=== PATIENT | male | born 1970 | race Caucasian/White ===

== ENCOUNTER 2021-10-24 05:01 | Emergency (ER) | payer SELFPAY ==
[2021-10-24 05:07] VITALS: BP 132/87
[2021-10-24 05:15] VITALS: BP 128/77
[2021-10-24] MEDS ORDERED: CORTISPORIN OTI10 ML AD (05:16)
[2021-10-24] MEDS ORDERED: CIPROFLOXACN500 MG PO (05:16)
[2021-10-24 05:18] VITALS: BP 132/87
== END 2021-10-24 05:32 | disposition home or self-care (01) | DRG 156 ==
LOC: ED 05:01
DX: H60.91 Unspecified otitis externa, right ear (principal)

== ENCOUNTER 2021-11-19 20:52 | Emergency (ER) | payer SELFPAY ==
[~2021-11-19] VITALS: Ht 170.2 cm; Wt 95.0 kg
[~2021-11-19 20:52] MED LIST: CIPROFLOXACN500 MG PO; CORTISPORIN OTI10 ML AD
[2021-11-19 21:02] VITALS: BP 121/81
[2021-11-19 21:30] VITALS: BP 121/79
[2021-11-19 21:38] LABS: HEMATOCRIT 46.8 % (39.0-50.0); HEMOGLOBIN 15.7 g/dl (14.0-18.0); IMMATURE GRANULOCYTES 0.3 % (0.0-5.0); MEAN CELL VOLUME 91.6 fL CALC (80.0-100.0); MEAN CORPUSCULAR HGB 30.7 pG CALC (26.0-32.0); MEAN CORPUSCULAR HGB CONC 33.5 g/dL CAL (32.0-36.0); NEUT# 7.12 thou/uL (1.82-7.42); RED BLOOD COUNT 5.11 mill/uL (4.70-6.10); RED CELL DISTRI WIDTH 12.5 % (11.5-15.5)
[2021-11-19 22:00] VITALS: BP 112/82
[2021-11-19 22:00] LABS: ALBUMIN 3.9 g/dL (3.2-5.0); ALKALINE PHOSPHATASE 84 u/l (38-126); ANION GAP 12 (6-22 (CALC)); BILIRUBIN, TOTAL 0.9 mg/dL (0.0-1.4); BUN 17 mg/dL (9-20); BUN/CREATININE RATIO 14 (12-20 (CALC)); CARBON DIOXIDE 28 mmol/l (22-30); CHLORIDE 107 mmol/l (95-108); CREATININE 1.2 mg/dL (0.7-1.3); GFR FOR AFR.AMER. > 60 ML/MIN (>=60 (CALC)); GFR OTHER RACES > 60 ML/MIN (>=60 (CALC)); POTASSIUM 4.5 mmol/l (3.5-5.1); SGOT/AST 16 u/l (17-59); SODIUM 143 mmol/l (137-146); TOTAL PROTEIN 6.6 g/dL (6.3-8.2)
[2021-11-19 22:11] LABS: MYOGLOBIN 29 ng/mL (0 - 121)
[2021-11-19] MEDS ORDERED: ZPAK PO (22:27)
[2021-11-19] MEDS ORDERED: ULTRAM50 M1 PO (22:27)
[2021-11-19 22:31] VITALS: BP 147/89
[2021-11-19 22:41] VITALS: BP 147/89
== END 2021-11-19 23:20 | disposition left against medical advice (07) | DRG 201 ==
LOC: ED 20:52
PROVIDERS: Emergency Medicine
DX: J93.9 Pneumothorax, unspecified (principal); J44.9 Chronic obstructive pulmonary disease, unspecified; F17.210 Nicotine dependence, cigarettes, uncomplicated; Z91.19 Patient's noncompliance with other medical treatment and regimen; Z20.822 Contact with and (suspected) exposure to COVID-19

== ENCOUNTER 2022-01-01 18:21 | Emergency (ER) | payer SELFPAY ==
[~2022-01-01] VITALS: Ht 170.2 cm; Wt 90.7 kg
[~2022-01-01 18:21] MED LIST changes: +ULTRAM50 M1 PO; +ZPAK PO
[2022-01-01 18:29] VITALS: BP 156/98
[2022-01-01 18:30] VITALS: BP 146/91
[2022-01-01 19:00] VITALS: BP 120/83
[2022-01-01 19:08] LABS: HEMATOCRIT 48.2 % (39.0-50.0); HEMOGLOBIN 16.1 g/dl (14.0-18.0); IMMATURE GRANULOCYTES 0.7 % (0.0-5.0); MEAN CORPUSCULAR HGB 30.7 pG CALC (26.0-32.0); MEAN CORPUSCULAR HGB CONC 33.4 g/dL CAL (32.0-36.0); NEUT# 6.07 thou/uL (1.82-7.42); RED BLOOD COUNT 5.24 mill/uL (4.70-6.10); RED CELL DISTRI WIDTH 12.7 % (11.5-15.5)
[2022-01-01 19:23] LABS: ALBUMIN 4.5 g/dL (3.2-5.0); ALKALINE PHOSPHATASE 94 u/l (38-126); BUN 16 mg/dL (9-20); BUN/CREATININE RATIO 18 (12-20 (CALC)); CARBON DIOXIDE 28 mmol/l (22-30); CREATININE 0.9 mg/dL (0.7-1.3); GFR FOR AFR.AMER. > 60 ML/MIN (>=60 (CALC)); GFR OTHER RACES > 60 ML/MIN (>=60 (CALC)); POTASSIUM 4.6 mmol/l (3.5-5.1); SGOT/AST 23 u/l (17-59); SODIUM 139 mmol/l (137-146); TOTAL PROTEIN 7.6 g/dL (6.3-8.2)
[2022-01-01 19:25] LABS: ANION GAP 15 (6-22 (CALC)); CHLORIDE 101 mmol/l (95-108)
[2022-01-01 19:28] LABS: BILIRUBIN, TOTAL 0.5 mg/dL (0.0-1.4)
[2022-01-01 19:31] VITALS: BP 133/90
[2022-01-01 19:49] LABS: MYOGLOBIN 12 ng/mL (0 - 121)
[2022-01-01] MEDS ORDERED: ULTRAM50 M1 PO (21:07)
[2022-01-01 21:45] VITALS: BP 133/90
== END 2022-01-01 21:56 | disposition home or self-care (01) | DRG 313 ==
LOC: ED 18:21
PROVIDERS: Nurse Practitioner
DX: R07.89 Other chest pain (principal); J44.9 Chronic obstructive pulmonary disease, unspecified; F17.200 Nicotine dependence, unspecified, uncomplicated; Z98.890 Other specified postprocedural states
CPT/HCPCS: Q9967

== ENCOUNTER 2022-01-12 09:51 | Emergency (ER) | payer OTHER ==
[~2022-01-12] VITALS: Ht 170.2 cm; Wt 95.4 kg
[2022-01-12 09:57] VITALS: BP 130/86
[2022-01-12 10:01] VITALS: BP 136/84
[2022-01-12 10:15] LABS: HEMATOCRIT 47.5 % (39.0-50.0); HEMOGLOBIN 15.5 g/dl (14.0-18.0); IMMATURE GRANULOCYTES 0.4 % (0.0-5.0); MEAN CELL VOLUME 92.2 fL CALC (80.0-100.0); MEAN CORPUSCULAR HGB 30.1 pG CALC (26.0-32.0); MEAN CORPUSCULAR HGB CONC 32.6 g/dL CAL (32.0-36.0); NEUT# 7.54 thou/uL (1.82-7.42); RED BLOOD COUNT 5.15 mill/uL (4.70-6.10)
[2022-01-12 10:31] VITALS: BP 118/73
[2022-01-12 10:37] LABS: ALBUMIN 4.6 g/dL (3.2-5.0); ALKALINE PHOSPHATASE 89 u/l (38-126); ANION GAP 13 (6-22 (CALC)); BILIRUBIN, TOTAL 0.6 mg/dL (0.0-1.4); BUN 13 mg/dL (9-20); BUN/CREATININE RATIO 14 (12-20 (CALC)); CARBON DIOXIDE 27 mmol/l (22-30); CHLORIDE 105 mmol/l (95-108); CREATININE 0.9 mg/dL (0.7-1.3); GFR FOR AFR.AMER. > 60 ML/MIN (>=60 (CALC)); GFR OTHER RACES > 60 ML/MIN (>=60 (CALC)); POTASSIUM 4.8 mmol/l (3.5-5.1); SGOT/AST 24 u/l (17-59); SODIUM 139 mmol/l (137-146); TOTAL PROTEIN 7.6 g/dL (6.3-8.2)
[2022-01-12 11:01] VITALS: BP 138/77
[2022-01-12] MEDS ORDERED: ZPAK PO (11:26)
[2022-01-12] MEDS ORDERED: AMOX/K CLAV875 M1 PO (11:26)
[2022-01-12 11:31] VITALS: BP 126/75
[2022-01-12] MEDS ORDERED: OXYCODONE5 M1 PO (11:31)
[2022-01-12 12:01] VITALS: BP 126/75
[2022-01-20] MEDS ORDERED: TRAMADOL HYDROC50 M1 PO (16:00)
== END 2022-01-12 11:53 | disposition home or self-care (01) | DRG 194 ==
LOC: ED 09:51
PROVIDERS: Family Medicine
DX: J18.9 Pneumonia, unspecified organism (principal); J44.0 Chronic obstructive pulmonary disease with (acute) lower respiratory infection; F17.210 Nicotine dependence, cigarettes, uncomplicated

== ENCOUNTER 2022-02-05 02:40 | Emergency (ER) | payer OTHER ==
[~2022-02-05] VITALS: Ht 170.2 cm; Wt 95.0 kg
[~2022-02-05 02:40] MED LIST changes: +AMOX/K CLAV875 M1 PO; +OXYCODONE5 M1 PO; +TRAMADOL HYDROC50 M1 PO
[2022-02-05 02:49] VITALS: BP 138/82
[2022-02-05 03:00] VITALS: BP 106/82
[2022-02-05 03:10] LABS: HEMATOCRIT 46.3 % (39.0-50.0); HEMOGLOBIN 15.5 g/dl (14.0-18.0); IMMATURE GRANULOCYTES 0.3 % (0.0-5.0); MEAN CELL VOLUME 92.8 fL CALC (80.0-100.0); MEAN CORPUSCULAR HGB 31.1 pG CALC (26.0-32.0); MEAN CORPUSCULAR HGB CONC 33.5 g/dL CAL (32.0-36.0); NEUT# 7.4 thou/uL (1.82-7.42); RED BLOOD COUNT 4.99 mill/uL (4.70-6.10); RED CELL DISTRI WIDTH 12.7 % (11.5-15.5)
[2022-02-05 03:16] VITALS: BP 143/90
[2022-02-05 03:22] LABS: ALBUMIN 4.2 g/dL (3.2-5.0); ALKALINE PHOSPHATASE 92 u/l (38-126); ANION GAP 15 (6-22 (CALC)); BUN 20 mg/dL (9-20); BUN/CREATININE RATIO 21 (12-20 (CALC)); CARBON DIOXIDE 23 mmol/l (22-30); CHLORIDE 105 mmol/l (95-108); CREATININE 0.9 mg/dL (0.7-1.3); GFR FOR AFR.AMER. > 60 ML/MIN (>=60 (CALC)); GFR OTHER RACES > 60 ML/MIN (>=60 (CALC)); POTASSIUM 4.3 mmol/l (3.5-5.1); SGOT/AST 27 u/l (17-59); SODIUM 139 mmol/l (137-146); TOTAL PROTEIN 7.2 g/dL (6.3-8.2)
[2022-02-05 03:24] LABS: BILIRUBIN, TOTAL 1.3 mg/dL (0.0-1.4)
[2022-02-05 03:31] VITALS: BP 134/66
[2022-02-05 03:46] VITALS: BP 132/102
[2022-02-05] MEDS ORDERED: VENTOLIN HFA IN (03:46)
[2022-02-05] MEDS ORDERED: CORTISPORIN OTI10 ML AD (03:46)
[2022-02-05] MEDS ORDERED: LEVOFLOXACIN750 MG PO (03:46)
[2022-02-05] MEDS ORDERED: PREDNISONE50 MG PO (03:46)
[2022-02-05 04:01] VITALS: BP 114/81
== END 2022-02-05 04:11 | disposition home or self-care (01) | DRG 155 ==
LOC: ED 02:40
PROVIDERS: Family Medicine
DX: H60.91 Unspecified otitis externa, right ear (principal); J44.1 Chronic obstructive pulmonary disease with (acute) exacerbation; Z72.0 Tobacco use